=== PATIENT | female | born 1950 | race Caucasian/White ===

== ENCOUNTER 2016-12-15 10:28 | Emergency (ER) | payer OTHER ==
[2016-12-15 11:00] LABS: HEMOGLOBIN 12.4 gm/dl (12.3-15.3); RED BLOOD COUNT 4.33 M/UL (4.00-5.10); WHITE BLOOD COUNT 7.1 K/UL (4.5-11.0)
[2016-12-15 11:17] LABS: BUN/CREATININE RATIO 21 (0-10)
== END 2016-12-15 16:55 | disposition home or self-care (01) ==
LOC: ER1 10:28
PROVIDERS: Emergency Medicine
DX: N20.1 Calculus of ureter (principal); Z98.0 Intestinal bypass and anastomosis status; Z88.0 Allergy status to penicillin
CPT/HCPCS: 36415; 80053; 81001; 83605; 83690; 84484; 85025; 87040; 93005; 96361; 96374; 96375; 96376; 99284; J2270; J2405; J7030; J7050; Q9962

== ENCOUNTER → 2021-06-10 | Outpatient (CLI) | payer MEDICARE | LOC: CT 09:37 | DX: K31.89 Other diseases of stomach and duodenum (principal); K57.92 Diverticulitis of intestine, part unspecified, without perforation or abscess without bleeding; K58.0 Irritable bowel syndrome with diarrhea; R14.0 Abdominal distension (gaseous); R14.2 Eructation; K76.89 Other specified diseases of liver; R10.13 Epigastric pain; Z90.710 Acquired absence of both cervix and uterus; Z90.49 Acquired absence of other specified parts of digestive tract | CPT/HCPCS: Q9967 ==